=== PATIENT | female | born 1950 | race Caucasian/White ===

== ENCOUNTER 2019-12-05 13:02 | Outpatient (CLI) | payer MEDICARE, SELFPAY ==
--- NOTE | ~2019-12-05 | US_ITS ---
EXAMINATION: US venous doppler LE EXAM DATE: 12/05/2019 14:27 INDICATION: Right leg pain. TECHNIQUE: Multiple grayscale, color flow and Doppler images of the lower extremity deep venous syste ms bilaterally were obtained and reviewed. There is no prior study for comparison. FINDINGS: Right side: The right common femoral, femoral and profunda veins demonstrate normal color flow, respi ratory variation, augmentation and compressibility. Compressibility, color flow confirmed within the right popliteal, posterior tibial, peroneal, and greater saphenous veins. Left side: The left common femoral, femoral and profunda veins demonstrate normal color flow, respira tory variation, augmentation and compressibility. Compressibility, color flow confirmed within the l eft popliteal, posterior tibial, peroneal, and greater saphenous veins. IMPRESSION: 1. No lower extremity deep venous thrombosis bilaterally. Reviewed, dictated and finalized at location A. PRESS OPERATOR
== END 2019-12-05 13:03 | disposition home or self-care (01) ==
PROVIDERS: PCP Family Medicine; Visit Provider Family Medicine
DX: M79.662 Pain in left lower leg (principal); M79.661 Pain in right lower leg
CPT/HCPCS: 93970

== ENCOUNTER 2020-04-09 15:25 | Outpatient (CLI) | payer MEDICARE, SELFPAY ==
--- NOTE | ~2020-04-09 | XR_ITS ---
EXAMINATION: XR lumbar spine 2-3V EXAM DATE: 04/09/2020 15:47 INDICATION: Muscle cramps from low back down left leg. TECHNIQUE: Lumber spine frontal, lateral, lateral L5-S1 projections for interpretation. There is no prior study for comparison. FINDINGS: There is moderate lumbar levoscoliosis. Moderate to severe disc disease L3-4, L4-5 and L5- S1, moderate at L2-3 and T12-L1. Chronic anterior wedging appearance to T12. The vertebral bodies are aligned in the AP dimension. There is moderate lumbar facet arthropathy. Some left lateral subluxati on L3 on L4. There are cholecystectomy clips. Paraspinal soft tissue is unremarkable. IMPRESSION: 1. Moderate to severe lumbar spondylosis. 2. Moderate lumbar levoscoliosis. Reviewed, dictated and finalized at location A.
== END 2020-04-09 15:26 | disposition home or self-care (01) ==
LOC: ANHIMG 15:27
PROVIDERS: PCP Family Medicine; Visit Provider Family Medicine
DX: M47.816 Spondylosis without myelopathy or radiculopathy, lumbar region (principal); M41.86 Other forms of scoliosis, lumbar region
CPT/HCPCS: 72100

== ENCOUNTER 2020-04-17 09:10 | Outpatient (CLI) | payer MEDICARE, SELFPAY ==
--- NOTE | ~2020-04-17 | CT_ITS ---
EXAMINATION: CT lumbar spine wo con DATE: 04/17/2020 09:31 INDICATION: Lumbar spondylosis with radiculopathy. TECHNIQUE: Computed tomography (CT) of the lumbar spine was performed without intravenous contrast. A utomated exposure control and iterative reconstruction technique were employed. The dose-length produ ct was 227.97 mGy-cm. COMPARISON: Lumbar spine radiograph 04/09/2020 FINDINGS: There is 21 degrees levoscoliosis of lumbar spine. There is a chronic compression fracture of T12 with 1/5 loss of height. There is severely decreased disc height at T12-L1, moderately decreas ed disc height at L1-L2, and severely decreased disc height from L2-L3 through L5-S1. There is Baastr up disease at L2-L3. The following disc levels are specifically discussed: L1-L2: The disc is bulging. There is severe right and mild left facet joint osteoarthritis. There is mild bilateral neural foraminal stenosis. There is mild central canal stenosis. L2-L3: The disc is bulging. There is severe right and mild left facet joint osteoarthritis. There is mild bilateral neural foraminal stenosis. There is mild central canal stenosis. L3-L4: The disc is bulging. There is severe right and moderate left facet joint osteoarthritis. There is mild bilateral neural foraminal stenosis. There is mild central canal stenosis. L4-L5: The disc is bulging. There is moderate right and severe left facet joint osteoarthritis. There is mild right and moderate left neural foraminal stenosis. There is mild central canal stenosis. L5-S1: The disc is bulging. There is moderate right and severe left facet joint osteoarthritis. There is mild bilateral neural foraminal stenosis. There is mild central canal stenosis. IMPRESSION: 1. Severe lumbar spondylosis. 2. Lumbar levoscoliosis. Reviewed, dictated and finalized at location A.
== END 2020-04-17 09:11 | disposition home or self-care (01) ==
PROVIDERS: PCP Family Medicine; Visit Provider Family Medicine
DX: M47.26 Other spondylosis with radiculopathy, lumbar region (principal)
CPT/HCPCS: 72131

== ENCOUNTER 2020-05-08 10:46 | Outpatient (CLI) | payer MEDICARE, SELFPAY | END 2020-05-08 10:47 | disposition home or self-care (01) | LOC: ANHAUDIO 10:47 | PROVIDERS: PCP Family Medicine; Visit Provider Family Medicine | DX: H90.3 Sensorineural hearing loss, bilateral (principal) | CPT/HCPCS: 92557; 92567 ==

== ENCOUNTER → 2021-02-20 13:29 | Outpatient (CLI) | payer MEDICARE, SELFPAY ==
--- NOTE | ~2021-02-20 | MM_ITS ---
EXAMINATION: MM screening [facility] BI w daniel HISTORY: Screening mammogram TECHNIQUE: Craniocaudal and mediolateral oblique 3-D tomosynthesis images were obtained and synthetic 2-D images were generated. CAD analysis was submitted and interpreted. COMPARISON: 08/20/2019, 02/23/2018 BREAST PARENCHYMAL COMPOSITION: The breasts are heterogeneously dense, which may obscure small masses . FINDINGS: There is no evidence of suspicious mass, calcification, or architectural distortion to sugg est malignancy in either breast. There has been no suspicious interval change. IMPRESSION: 1. No mammographic evidence of malignancy. 2. Recommend routine screening mammography in one year. BI-RADS Category 1: Negative Reviewed, dictated and finalized at location A.
== END ==
PROVIDERS: PCP Family Medicine; Visit Provider Family Medicine
DX: Z12.31 Encounter for screening mammogram for malignant neoplasm of breast (principal)
CPT/HCPCS: 77063; 77067

== ENCOUNTER → 2022-09-01 14:02 | Outpatient (CLI) | payer MEDICARE, SELFPAY ==
--- NOTE | ~2022-09-01 | DEXA_ITS ---
Bone Density Report Name: DALE AL Age: 72 Sex: Female Ethnicity: White Date of : 1950 Indication: osteopenia; parental hip fracture; height loss; prior fracture; postmenopausal Referring Provider: SHAANANA CRISTINA Study: Bone densitometry was performed. Exam Date: September 01, 2022 Accession number: [id number] Bone Density: Region BMD T-score Z-score Classification AP Spine (L1, L2) 0.857 -1.1 0.9 Osteopenia Femoral Neck (Left) 0.504 -3.1 -1.2 Osteoporosis Total Hip (Left) 0.692 -2.0 -0.5 Osteopenia Femoral Neck (Right) 0.508 -3.1 -1.2 Osteoporosis Total Hip (Right) 0.718 -1.8 -0.3 Osteopenia Total Hip Mean 0.705 -1.9 -0.4 Osteopenia World Health Organization criteria for BMD impression classify patients as: Normal (T-score at or above -1.0), Osteopenia (T-score between -1.0 and -2.5), or Osteoporosis (T-score at or below -2.5). 10-year Fracture Risk: FRAX not reported because: Some T-score for Spine Total or Hip Total or Femoral Neck at or below -2.5 Prior hip or vertebral fracture Previous Exams: Region Exam Age BMD T-score BMD Change BMD Change Date g/cm2 vs Baseline vs Previous AP Spine(L1, L2) 09/01/2022 72 0.857 -1.1 0.027* 0.027* 08/08/2019 69 0.830 -1.4 Total Hip(Left) 09/01/2022 72 0.692 -2.0 -0.022 -0.022 08/08/2019 69 0.714 -1.9 Total Hip(Right) 09/01/2022 72 0.718 -1.8 -0.030* -0.030* 08/08/2019 69 0.748 -1.6 *Denotes significance at 95% confidence level, LSC for AP Spine = 0.022 g/cm2, LSC for Total Hip = 0.027 g/cm2 Clinical Information Provided by Patient: Have had a previous hip or vertebral fracture Has had a low trauma fracture Parent has had a hip fracture Has used the following medications: Vitamin D Patient maximum height was 62 Menopause Age: 54 Onset of menses at age 15 Number of children 3 Impression: The patient has established osteoporosis, based on the Left Femoral Neck T-score and the existence of a prior fracture. The patient has risk factors, including: parental hip fracture, previous fracture. The BMD for the Total Hip(Right) decreased, changing by -0.030 since the last DXA exam. Discussion: HIGH RISK OF FRACTURE. BONE DENSITY IS UNDESIRABLY LOW AT ONE OR MORE SKELETAL SITES, CONSISTENT WITH POSTMENOPAUSAL OSTEOPOROSIS. This patient's lowest T-score, in a patient who has previously fractured, meets the World Health Organization's (WHO)
== END ==
PROVIDERS: PCP Hospitalist; Visit Provider Hospitalist
DX: Z78.0 Asymptomatic menopausal state (principal); M85.88 Other specified disorders of bone density and structure, other site; M81.0 Age-related osteoporosis without current pathological fracture; M85.852 Other specified disorders of bone density and structure, left thigh; M85.851 Other specified disorders of bone density and structure, right thigh
CPT/HCPCS: 77080

== ENCOUNTER → 2022-10-31 10:36 | Outpatient (CLI) | payer MEDICARE, SELFPAY ==
--- NOTE | ~2022-10-31 | MM_ITS ---
EXAMINATION: MM screening [facility] BI w daniel HISTORY: Screening mammogram TECHNIQUE: Craniocaudal and mediolateral oblique 3-D tomosynthesis images were obtained and synthetic 2-D images were generated. CAD analysis was submitted and interpreted. COMPARISON: 02/20/2021, 08/08/2019, 02/23/2018 bilateral screening mammogram examinations BREAST PARENCHYMAL COMPOSITION: The breasts are heterogeneously dense, which may obscure small masses . FINDINGS: There is no evidence of suspicious mass, calcification, or architectural distortion to sugg est malignancy in either breast. There has been no suspicious interval change. IMPRESSION: 1. No mammographic evidence of malignancy. 2. Recommend routine screening mammography in one year. BI-RADS Category 1: Negative Reviewed, dictated and finalized at location A. N SOCIOLOGIST
== END ==
PROVIDERS: PCP Hospitalist; Visit Provider Hospitalist
DX: Z12.31 Encounter for screening mammogram for malignant neoplasm of breast (principal)
CPT/HCPCS: 77063; 77067

== ENCOUNTER 2024-04-11 14:54 | Outpatient (CLI) | payer MEDICARE, SELFPAY ==
--- NOTE | ~2024-04-11 | MM_ITS ---
EXAMINATION: MM screening [facility] BI w daniel HISTORY: Screening TECHNIQUE: Craniocaudal and mediolateral oblique 3-D tomosynthesis images were obtained and synthetic 2-D images were generated. CAD analysis was submitted and interpreted. COMPARISON: No prior mammogram is available for comparison at this institution. BREAST PARENCHYMAL COMPOSITION: Dense: The breasts are heterogeneously dense, which may obscure small masses FINDINGS: There is no evidence of suspicious mass, calcification, or architectural distortion to sugg est malignancy in either breast. There has been no suspicious interval change. IMPRESSION: 1. No mammographic evidence of malignancy. 2. Recommend routine screening mammography in one year. BI-RADS Category 1: Negative Reviewed, dictated and finalized at location B.
== END 2024-04-11 14:55 ==
PROVIDERS: PCP Hospitalist; Visit Provider Hospitalist
DX: Z12.31 Encounter for screening mammogram for malignant neoplasm of breast (principal)
CPT/HCPCS: 77063; 77067

== ENCOUNTER 2024-09-08 13:06 | Outpatient (CLI) | payer MEDICARE, SELFPAY ==
--- NOTE | ~2024-09-08 | MR_ITS ---
MRI of the left shoulder Technique: Axial proton-density fat-sat images, coronal proton density fat-sat and T2 fat-sat images, and sagittal T1-weighted and T2 fat-sat images were acquired. Clinical History: Pain Findings: There is moderate AC joint degenerative change, marrow edema at the distal clavicle and mil d bony productive change. Coracoclavicular, coracoacromial, and coracohumeral ligaments are intact. Supraspinatus and infraspinatus tendons are intact, without partial or full-thickness tear. Subscapul callie tendon is intact. There is mild tendinosis. Tendon of the long head of the biceps demonstrates i ntra-articular tendinosis. No labral tear evident. Inferior glenohumeral ligament is intact. No degenerative change or effusion of the glenohumeral join t. There is cystic enthesopathic change in the humeral head at the rotator cuff insertion. There is m ild fluid distention of the subacromial/subdeltoid bursa. No muscle atrophy or edema. Impression: No rotator cuff or labral tear seen. Mild rotator cuff tendinosis. Mild subacromial/subdeltoid bursitis. Moderate AC joint degenerative change. Reviewed, dictated and finalized at location M. ATORY GAME BIRD BIOLOGIST Impression: No rotator cuff or labral tear seen. Mild rotator cuff tendinosis. Mild subacromial/subdeltoid bursitis. Moderate AC joint degenerative change.
== END 2024-09-08 13:07 | disposition home or self-care (01) ==
LOC: GOSHIMG 13:07
PROVIDERS: PCP Nurse Practitioner; Visit Provider Nurse Practitioner
DX: M75.52 Bursitis of left shoulder (principal); M19.012 Primary osteoarthritis, left shoulder
CPT/HCPCS: 73221

== ENCOUNTER 2025-02-09 11:22 | Outpatient (CLI) | payer MEDICARE, SELFPAY ==
--- NOTE | ~2025-02-09 | XR_ITS ---
Lumbosacral Spine: AP, oblique, and lateral views Clinical History: Pain Findings: There is prominent levoscoliosis. No fracture or anterior or posterior listhesis evident. S evere degenerative disc narrowing from L2 through L5 is present. Severe facet arthropathies along the spinous present. The sacroiliac joints are normally outlined. Impression: Severe degenerative spondylosis with prominent levoscoliosis. Reviewed, dictated and finalized at location M. Impression: Severe degenerative spondylosis with prominent levoscoliosis.
== END 2025-02-09 11:23 | disposition home or self-care (01) ==
LOC: GOSHIMG 11:23
PROVIDERS: PCP Nurse Practitioner; Visit Provider Nurse Practitioner
DX: M54.50 Low back pain, unspecified (principal); M47.896 Other spondylosis, lumbar region
CPT/HCPCS: 72110

== ENCOUNTER 2025-04-16 08:49 | Outpatient (CLI) | payer MEDICARE, SELFPAY ==
--- NOTE | ~2025-04-16 | MM_ITS ---
EXAMINATION: MM screening [facility] w daniel HISTORY: Screening TECHNIQUE: Craniocaudal and mediolateral oblique 3-D tomosynthesis images were obtained and synthetic 2-D images were generated. CAD analysis was submitted and interpreted. COMPARISON: Comparison to multiple prior studies sequentially, with oldest reviewed study dated 02/23. BREAST PARENCHYMAL COMPOSITION: The breasts are heterogeneously dense, which may obscure small masses . FINDINGS: There is no evidence of suspicious mass, calcification, or architectural distortion to sugg est malignancy in either breast. There has been no suspicious interval change. IMPRESSION: 1. No mammographic evidence of malignancy. 2. Recommend routine screening mammography in one year. BI-RADS Category 1: Negative Reviewed, dictated and finalized at location A.
== END 2025-04-16 08:50 | disposition home or self-care (01) ==
LOC: MICIMG 08:50
PROVIDERS: PCP Internal Medicine; Visit Provider Nurse Practitioner
DX: Z12.31 Encounter for screening mammogram for malignant neoplasm of breast (principal)
CPT/HCPCS: 77063; 77067